=== PATIENT | male | born 1950 | race Caucasian/White ===

== ENCOUNTER 2016-05-01 09:04 | Inpatient (IN) | payer SELFPAY ==
[2016-05-01 09:10] VITALS: BMI 15.2
[2016-05-01] MEDS ORDERED: Albuterol-Ipratrop 3 mg / 0.5 (3 ml) UD IH STA (10:21)
--- NOTE | 2016-05-01 10:24 | ED PDOC ---
HPI: CCC, URI, Sore Throat Time Seen by Provider: 05/01/16 09:19 Chief Complaint (Nursing): Cough, Cold, Congestion Chief Complaint (Provider): Cough History Per: Patient History/Exam Limitations: no limitations Have you had recent travel within the past 21 days to any of the following countries: [place], [place], [place] or [place]?: No Onset/Duration Of Symptoms: Days (1 year) Current Symptoms Are (Timing): Still Present Additional Complaint(s): Pt. with cough for 1 year with dyspnea and yellow sputum. No nausea, vomit, weakness, headaches, dizziness, back pain, chest pain. Seen by Dr. Pulido and sent to the ED for eval and tx for fungal infection. No neck pain. Past Medical History Vital Signs: Last Vital Signs Temp 97.6 F 05/01/16 09:10 Pulse 107 H 05/01/16 09:10 Resp 16 05/01/16 09:10 BP 127/65 05/01/16 09:10 Pulse Ox 100 05/01/16 11:43 - Medical History PMH: HIV Denies: Chronic Kidney Disease - Surgical History Surgical History: No Surg Hx - Family History Family History: States: Unknown Family Hx, [place] - Living Arrangements Living Arrangements: Alone - Social History Current smoker - smoking cessation education provided: No Alcohol: None Drugs: Denies - Home Medications Home Medications: Ambulatory Orders Medication Instructions Recorded Cholecalciferol [Vitamin D 1000 IU] 2,000 iu PO DAILY #0 tab 01/13/15 Darunavir [Prezista] 800 mg PO DAILY #0 tab 01/13/15 Emtricitabine [Emtriva] 200 mg PO DAILY #0 cap 01/13/15 Ritonavir [Norvir] 100 mg PO DAILY #0 tab 01/13/15 - Allergies Allergies/Adverse Reactions: Allergies Allergy/AdvReac Type Severity Reaction Status Date / Time No Known Allergies Allergy Verified 12/28/14 19:22 Review of Systems ROS Statement: Except As Marked, All Systems Reviewed And Found Negative Respiratory: Positive for: Cough, Shortness of Breath, Sputum Physical Exam - Reviewed Nursing Documentation Reviewed: Yes Vital Signs Reviewed: Yes - Physical Exam Appears: Positive for: Well, Non-toxic, No Acute Distress Head Exam: Positive for: ATRAUMATIC, NORMAL INSPECTION, NORMOCEPHALIC Skin: Positive for: Normal Color, Warm, DRY Eye Exam: Positive for: EOMI, Normal appearance, PERRL ENT: Positive for: Nasal Congestion. Negative for: Pharyngeal Erythema, Tonsillar Exudate Neck: Positive for: Normal, Painless ROM, Supple Cardiovascular/Chest: Positive for: Regular Rate, Rhythm Respiratory: Positive for: Normal Breath Sounds. Negative for: Accessory Muscle Use, Wheezing Gastrointestinal/Abdominal: Positive for: Normal Exam, Bowel Sounds, Soft. Negative for: Tenderness Back: Positive for: Normal Inspection. Negative for: L CVA Tenderness, R CVA Tenderness Extremity: Positive for: Normal ROM. Negative for: Tenderness, Pedal Edema Neurologic/Psych: Positive for: Alert, Oriented - Laboratory Results Result Diagrams: 05/01/16 10:49 05/01/16 10:49 Interpretation Of Abn Labs: lactate 3 - ECG ECG Rhythm: Positive for: Sinus Rhythm, Right Bundle Branch Block O2 Sat by Pulse Oximetry: 100 Pulse Ox Interpretation: Normal - Radiology X-Ray: Interpreted by Me, Viewed By Me X-Ray Interpretation: Infiltrates (L upper and lower lobe: similar to old) - Progress ED Course And Treament: 1149: Stable. Spoke with Dr. Scott. Mary pt. admit to [facility] resident and ID consult for fungal tx. 1232: Spok with Dr. Fagan. Mary arboleda and Zosyn. Will admit. He will consult. Stable. AAOx3. Pain controlled. Does not meet sirs criteria. Disposition - Clinical Impression Clinical Impression: Pulmonary fungal infection - Patient ED Disposition Is Patient to be Admitted: Yes Doctor Will See Patient In The: ED Counseled Patient/Family Regarding: Studies Performed, Diagnosis - Disposition Disposition: Hospice - Home Disposition Time: 12:00 Condition: FAIR - Pt Status Changed To: Hospital Disposition Of: Inpatient - Admit Certification Admit to Inpatient:: After my assessment, the patient will require hospitalization for at least two midnights. This is because of the severity of symptoms shown, intensity of services needed, and/or the medical risk in this patient being treated as an outpatient. - POA Present On Arrival: None
[2016-05-01] MEDS ORDERED: Albuterol-Ipratrop 3 mg / 0.5 (3 ml) UD ONE (10:56)
[2016-05-01 10:57] LABS: BASO # 0.1 K/uL (0.0-0.2); BASO % 0.8 % (0.0-2.0); EOS # 1.4 K/uL (0.0-0.7); HEMATOCRIT 36.3 % (35.0-51.0); LYMPH # 2.5 K/uL (1.0-4.3); MEAN CELL VOLUME 88.4 fl (80.0-94.0); MEAN CORPUSCULAR HGB CONC 31.7 g/dL (33.0-37.0); MEAN PLATELET VOLUME 6.7 fl (7.2-11.7); MONO # 0.5 K/uL (0.0-0.8); MONO % 6.8 % (0.0-10.0); NEUT % 40.4 % (50.0-75.0); NRBC % 0.1 % (0.0-0.0); RED CELL DISTRIBUTION WIDTH 14.9 % (11.5-14.5); WHITE BLOOD COUNT 7.5 K/uL (4.8-10.8)
[2016-05-01 11:05] LABS: ALB/GLOB RATIO 0.8 (1.0-2.1); ALKALINE PHOSPHATASE 172 U/L (38-126); ALT/SGPT 35 U/L (21-72); AST/SGOT 43 U/L (17-59); BILIRUBIN,TOTAL 0.3 mg/dl (0.2-1.3); BLOOD UREA NITROGEN 11 mg/dl (9-20); CALCIUM 9.2 mg/dL (8.4-10.2); CARBON DIOXIDE 27 mmol/L (22-30); CHLORIDE 102 mmol/L (98-107); GFR AFRICAN-AMERICAN > 60; GLUCOSE,RANDOM 89 mg/dL (75-110); POTASSIUM 4.1 MMOL/L (3.6-5.0); SODIUM 137 mmol/l (132-148); TOTAL PROTEIN 8.7 G/DL (6.3-8.2)
[2016-05-01] MEDS: Sodium Chloride 0.9% 1,000 ML IV SCH ×2 (11:08→14:44)
[2016-05-01 11:13] LABS: PARTIAL THROMBOPLASTIN TIME 34.3 SECONDS (23.3-32.5)
[2016-05-01 11:19] LABS: VENOUS BLOOD GAS BASE EXCESS 1.5 mmol/L (0.0-2.0); VENOUS BLOOD GAS PCO2 50 mmHg (40-60); VENOUS BLOOD PH 7.35 (7.32-7.43)
[2016-05-01] MEDS ORDERED: VORICONAZOLE IVPB STA (12:31)
[2016-05-01] MEDS ORDERED: SODIUM CHLORIDE 0.9% IVPB STA (12:31)
[2016-05-01] MEDS ORDERED: Piperacillin/Tazobact 3.375 GM in Sodium Chloride 0.9% 100 ML IVPB STA (12:32)
--- NOTE | 2016-05-01 12:42 | RAD ---
HISTORY: Sepsis patient. Technique: Single view portable semi erect @ 11:10. COMPARISON: 01/04/2015. Two-view chest. 01/07/2015 CT thorax FINDINGS: LUNGS: Continued consolidative changes volume loss in the left lung with hyperinflation right Small infiltrate or mass right lower lobe measuring 16 x 19 mm. PLEURA: Stable biapical pleural thickening. CARDIOVASCULAR: Normal. OSSEOUS STRUCTURES: No significant abnormalities. VISUALIZED UPPER ABDOMEN: Normal. OTHER FINDINGS: None. IMPRESSION: Progressive consolidative changes left lung. New right lower lobe infiltrate/mass.
[2016-05-01 12:49] LABS: VENOUS BLOOD GAS BASE EXCESS 3.4 mmol/L (0.0-2.0); VENOUS BLOOD GAS PCO2 50 mmHg (40-60); VENOUS BLOOD PH 7.38 (7.32-7.43)
--- NOTE | 2016-05-01 13:02 | CT ---
PROCEDURE: CT HEAD WITHOUT CONTRAST. HISTORY: Abnormal x ray and previous ct scan COMPARISON: None available. TECHNIQUE: Axial computed tomography images were obtained through the head/brain without intravenous contrast. Radiation dose: Total exam DLP = 855.78 mGy-cm. FINDINGS: HEMORRHAGE: No intracranial hemorrhage. BRAIN: No mass effect or edema. No atrophy or chronic microvascular ischemic changes. VENTRICLES: Unremarkable. No hydrocephalus. CALVARIUM: Unremarkable. PARANASAL SINUSES: Unremarkable as visualized. No significant inflammatory changes. MASTOID AIR CELLS: Unremarkable as visualized. No inflammatory changes. OTHER FINDINGS: None. IMPRESSION: No intracranial mass, hemorrhage or evidence of acute infarct. Please note that there is no prior head CT available for comparison.
[2016-05-01] MEDS ORDERED: Piperacillin/Tazobact 3.375 gm Inj IVPB ONE (14:30)
--- NOTE | 2016-05-01 14:34 | CP.PCM.HP ---
History of Present Illness - History of Present Illness History of Present Illness: [employer] # [id number] 64 YO M with HIV, h/o tuburculoma surgery on left chest 2011 presents to the ER with C/o productive cough for the past year and a half. With yellowish non foul smelling, non blood tinged sputum. PT denies fever but states he has night sweats and and chills randomly but not all the time. PT states his appetitie is normal. He has been having some blurry vision and headache intermittently but currently is not complaining of it. Pt also complains of always being tired. Denies any Nausea, vomiting, neck rigidity. - Patients states he has been compliant with his medications and follows with his PMD regularly. PT states that he has known about the fungal infection in his chest for the last year and was possibly given medication but didn't work. 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 Denies IV drugs, Normal appetite PMD: Dr. Pulido Home med: - Proventil HFA - Truvada 200-300 mg tab - Tivicay 50 mg tablet 1 tab PO daily - Bactrim DS 800-160 mg tab orally once a day - Guafenesin 400mg tab BID - Oscal 500/200 D-3 500-200 mg unit ED Course and Rx: - Isolation - CBC: Hb:11.5, Eos:1.4 - CMP: Alk Phos: 172 - VBG: PH:7.38, PO2: 28, CO2:31.1 - Consulted Dr. Edwards - Consulted Dr. Fagan -Voriconazole 180 mg stat in ER - Bactrim DS one tab PO ( Received first dose in ER) - Albuterol Ipratropium neb - EKG: Normal sinus rhythm Right bundle branch block -X Ray: Progressive consolidative changes in left lung, New right lower lobe infiltrate/mass Present on Admission - Present on Admission Any Indicators Present on Admission: No Review of Systems - Review of Systems Review of Systems: negative except as mentioned in HPI Past Patient History - Infectious Disease Hx of Infectious Diseases: None - Past Medical History & Family History Past Medical History?: Yes - Past Social History Alcohol: None Drugs: Denies - CARDIAC Hx Cardiac Disorders: No - PULMONARY Hx Respiratory Disorders: Yes Hx Tuberculosis: Yes Other/Comment: tuberculoma of lung - NEUROLOGICAL Hx Neurological Disorder: No - HEENT Hx HEENT Problems: Yes - RENAL Hx Chronic Kidney Disease: No - ENDOCRINE/METABOLIC Hx Endocrine Disorders: No - HEMATOLOGICAL/ONCOLOGICAL Hx Human Immunodeficiency Virus (HIV): Yes - INTEGUMENTARY Hx Dermatological Problems: No - MUSCULOSKELETAL/RHEUMATOLOGICAL Hx Musculoskeletal Disorders: No Hx Falls: No - GASTROINTESTINAL Hx Gastrointestinal Disorders: No - GENITOURINARY/GYNECOLOGICAL Hx Genitourinary Disorders: No - PSYCHIATRIC Hx Psychophysiologic Disorder: No Hx Substance Use: No - SURGICAL HISTORY Hx Surgeries: Yes Hx Pulmonary Surgery: Yes (tuberculoma) - ANESTHESIA Hx Anesthesia: Yes Hx Anesthesia Reactions: No Hx Malignant Hyperthermia: No Meds Allergies/Adverse Reactions: Allergies Allergy/AdvReac Type Severity Reaction Status Date / Time No Known Allergies Allergy Verified 12/28/14 19:22 Physical Exam - Constitutional Appears: No Acute Distress, Chronically Ill - Head Exam Head Exam: ATRAUMATIC, NORMAL INSPECTION, NORMOCEPHALIC Additional comments: Mouth no lesions noted - Eye Exam Eye Exam: Normal appearance - Neck Exam Neck exam: Negative for: Lymphadenopathy - Respiratory Exam Respiratory Exam: Clear to Auscultation Bilateral, NORMAL BREATHING PATTERN. absent: Rales, Rhonchi, Wheezes - Cardiovascular Exam Cardiovascular Exam: REGULAR RHYTHM, +S1, +S2 - GI/Abdominal Exam GI & Abdominal Exam: Normal Bowel Sounds, Soft. absent: Tenderness - Extremities Exam Extremities exam: Positive for: normal inspection. Negative for: calf tenderness - Neurological Exam Neurological exam: Alert, CN II-XII Intact, Oriented x3 Results - Vital Signs Recent Vital Signs: Last Vital Signs Temp 97.6 F 05/01/16 09:10 Pulse 107 H 05/01/16 09:10 Resp 16 05/01/16 09:10 BP 127/65 05/01/16 09:10 Pulse Ox 100 05/01/16 12:36 - Labs Result Diagrams: 05/01/16 10:49 05/01/16 10:49 Labs: Laboratory Results - last 24 hr 05/01/16 12:43 pO2 28 L VBG pH 7.38 VBG pCO2 50 VBG HCO3 26.3 VBG Total CO2 31.1 H VBG O2 Sat (Calc) 48.5 VBG Base Excess 3.4 H VBG Potassium 4.0 Sodium 134.0 Chloride 107.0 Glucose 89 Lactate 1.2 FiO2 21.0 Venous Blood Potassium 4.0 Assessment & Plan - Assessment and Plan (Free Text) Assessment: 1) Posible Pulmonary Aspergiloma - CT scan: Persistant cavitary lesion rt upper lobe w/ rounded soft tissue mass density. - H/O tuburculoma surgery 2011 -X Ray: Progressive consolidative changes in left lung, New right lower lobe infiltrate/mass. - Dr. Hernández (ID) on board - Consult Dr. Bardales (Pulm) - Voriconazole 200 mg IVPB Q12 - Zosyn IVPB Q6 - F/U w/ Sputum Culture, Blood Culture 2) HIV CD4 (177) (undetectable viral load) - Emtricitabine/ Tenofovir 200mg-300mg Daily - Bactrim DS 1 tab PO MWF - Azithromycin 1,200 mg PO QWK 3) Mild intermitant asthma - Albuterol inhaler PRN 4) DVT prophylaxis - Lovenox
--- NOTE | 2016-05-01 14:42 | CP.PCM.PN ---
Subjective - Date & Time of Evaluation Date of Evaluation: 05/01/16 Time of Evaluation: 14:35 - Subjective Subjective: iID NOTE PATIENT C PULMONARY ASPERGILLOSIS AND HIV ON TRUVADA/TIVICAY DISCUSSED c CD4:177,VIRAL LOAD IS <20 CXR :REVIEWED VFEND STARTED WELL ZOSYN PULMONARY CONSULT() Objective - Vital Signs/Intake and Output Vital Signs (last 24 hours): Temp Pulse Resp BP Pulse Ox 97.6 F 107 H 16 127/65 100 05/01/16 09:10 05/01/16 09:10 05/01/16 09:10 05/01/16 09:10 05/01/16 12:36 - Medications Medications: Current Medications Sodium Chloride (Sodium Chloride 0.9%) 1,000 mls @ 1,000 mls/hr IV .Q1H RADHA Last Admin: 05/01/16 11:08 Dose: 1,000 mls/hr Voriconazole 240 mg/ Sodium (Chloride) 100 mls @ 50 mls/hr IVPB Q12@0400,1600 RADHA Stop: 05/02/16 05:59 Voriconazole 160 mg/ Sodium (Chloride) 100 mls @ 50 mls/hr IVPB Q12@0400,1600 RADHA Piperacillin Sod/Tazobactam (Sod 2.25 gm/ Sodium Chloride) 100 mls @ 100 mls/ hr IVPB Q6 RADHA - Labs Labs: PT 10.8 SECONDS (9.6-11.2) 05/01/16 10:49 INR 1.04 (0.92-1.08) 05/01/16 10:49 APTT 34.3 SECONDS (23.3-32.5) H 05/01/16 10:49
[2016-05-01] MEDS ORDERED: Sodium Chloride 3% for Inhalation 4 ML VIAL.NEB IH PRN (14:58)
[2016-05-01] MEDS ORDERED: Albuterol HFA 90 mcg/actuation (8 g) INH PRN (16:14)
[2016-05-01] MEDS: VORICONAZOLE IVPB SCH (17:02)
[2016-05-01] MEDS: SODIUM CHLORIDE 0.9% IVPB SCH (17:02)
--- NOTE | 2016-05-01 18:31 | CT ---
PROCEDURE: CT Chest without contrast HISTORY: PULMONARY ASPERGILLOSIS COMPARISON: 01/04/2015 TECHNIQUE: Contiguous axial images were obtained through the chest without intravenous contrast enhancement. Sagittal and coronal reconstructions were performed. Radiation dose (DLP): 146.77 mGy-cm. FINDINGS: LUNGS: Extensive volume loss left lung. Likely partial left pneumonectomy. Extensive cavitary change in remaining left lung with associated marked pleural thickening. No normal residual aerated lung. . There is an intracavitary soft tissue mass best seen on series 3, image 32, possibly an aspergilloma. This probable bronchiectasis. Marked tracheomegaly. Right apical fibrous scar with small cavities and possible intracavitary mass as on prior examination, suggestive of aspergilloma. Pleural thickening extends along the posterior aspect right upper lobe. No acute infiltrate. Minimal linear scarring right lower lobe. MEDIASTINUM: Marked shift of heart and mediastinum towards the left side. No cardiomegaly. No evidence of thoracic aortic aneurysm. Normal diameter of main pulmonary artery. Mildly enlarged prevascular lymph nodes decreased from prior examination. PLEURA: No pleural effusion. Marked elevation of left hemidiaphragm secondary to left-sided volume loss. See above. BONES: No fracture. No destructive lesion. UPPER ABDOMEN: Grossly unremarkable. OTHER FINDINGS: None. IMPRESSION: Severe left-sided volume loss with no residual normal aerated lung. Extensive pleural thickening. About left sebas thorax. Pleural thickening right apex. 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 Partial left pneumonectomy. No acute infiltrate.
[2016-05-02] MEDS: SODIUM CHLORIDE 0.9% IVPB SCH ×2 (04:45→16:05)
[2016-05-02] MEDS: VORICONAZOLE IVPB SCH ×2 (04:45→16:05)
[2016-05-02] MEDS: TIVICAY PO SCH (08:32)
[2016-05-02] MEDS: Enoxaparin 40 mg Syringe SC SCH (08:32)
[2016-05-02] MEDS: Emtricitabine-Tenofovir 200 mg-300 mg Tab PO SCH (08:32)
--- NOTE | 2016-05-02 11:34 | CON ---
DATE: 05/02/2016 SUBJECTIVE: The patient is a 65-year-old male who is referred for pulmonary evaluation because of a cough for the past 1-1/2 years, followed by foul smelling sputum, which is yellowish in color. Denie s hemoptysis, no fever, chills or night sweats. The patient was admitted to the medical service for the above symptoms and the finding on the CT scan of aspergilloma fungus ball. PAST MEDICAL HISTORY: He has a past medical history of HIV infection, status post left upper lobe re section for tuberculosis in 2011. He has been followed up by Dr. Pulido in the outpatient clinic. MEDICATIONS: Include: Proventil, Truvada, , Bactrim, Os-Oral and guaifenesin. PHYSICAL EXAMINATION: GENERAL: He appears to have lost a lot of weight. He is alert, oriented, appears to be in mild distr ess because of cough. VITAL SIGNS: Blood pressure 97/59, pulse of 70, respirations 20. He is afebrile. O2 sat 100% on ro om air. SKIN: Shows fair turgor. HEENT: Pupils equal, react to light and accommodation. Mouth shows fair hygiene. NECK: JVP is flat. LUNGS: Bilateral scattered rales with dullness over the left apical area. ABDOMEN: Soft, nontender, no organomegaly. EXTREMITIES: Shows no edema or cyanosis. Also noted is a scar of prior surgery, left upper lobe are a. LABORATORY DATA: CT scan of the chest is remarkable for left-sided volume loss, with residual , with lung extensive pleural thickening, possible bilateral aspergilloma, partial left pneumonectomy noted. WBC 7.5, hemoglobin 11.5, platelet count 347,000. Sodium 137, potassium 4.1, BUN of 11, crea tinine 0.7. ABGs: pH 7.38, pO2 of 28, pCO2 of 50. This is a venous blood gas. IMPRESSION: A 65-year-old male with a history of human immunodeficiency virus infection, status post left upper lobe resection for tuberculosis, presents with what appears to be aspergilloma. PLAN: To continue IV antifungal medications as ordered and also continue antibiotics as ordered. Wo uld obtain sputum for Aspergillus precipitins and also obtain sputum for AFB to rule out recurrence o f tuberculosis. I agree with the present therapy. We will continue to follow with you. No other in tervention except for ordered medications at present, unless the patient develops hemoptysis. Eber Bardales MD cc: 62 TT: 05/02/2016 11:34:11 Confirmation # [id number] Dictation # [id number]
--- NOTE | 2016-05-02 11:58 | CARD ---
APPROVED REPORT EKG Measurement Heart [id number] <Conclusion> Normal sinus rhythm Right bundle branch block Abnormal ECG
--- NOTE | 2016-05-02 13:30 | CP.PCM.PN ---
Subjective - Date & Time of Evaluation Date of Evaluation: 05/02/16 Time of Evaluation: 07:15 - Subjective Subjective: - Patient was seen at bedside states he is doing well. He slept well thoughout the night. Denies any N/V/D headache, chest pain, or SOB. He states his appetite is good. Objective - Vital Signs/Intake and Output Vital Signs (last 24 hours): Temp Pulse Resp BP Pulse Ox 98.4 F 70 20 97/59 L 100 05/02/16 08:38 05/02/16 08:38 05/02/16 08:38 05/02/16 08:38 05/02/16 08:38 - Medications Medications: Current Medications Albuterol (Ventolin Hfa 90 Mcg/Actuation (8 G)) 2 puff INH RQ4 PRN PRN Reason: Shortness of Breath Azithromycin (Zithromax) 1,200 mg PO QWK [facility] Emtricitabine/Tenofovir (Truvada 200 Mg-300 Mg) 1 tab PO DAILY [facility] Last Admin: 05/02/16 08:32 Dose: 1 tab Enoxaparin Sodium (Lovenox) 40 mg SC DAILY RADHA PRN Reason: Protocol Last Admin: 05/02/16 08:32 Dose: 40 mg Home Med (Patient's Own Medication) 1 unit PO DAILY [facility] Last Admin: 05/02/16 08:32 Dose: 1 unit Voriconazole 160 mg/ Sodium (Chloride) 100 mls @ 50 mls/hr IVPB Q12@0400,1600 [facility] Piperacillin Sod/Tazobactam (Sod 2.25 gm/ Sodium Chloride) 100 mls @ 100 mls/ hr IVPB Q6 [facility] Last Admin: 05/02/16 09:14 Dose: 100 mls/hr Trimethoprim/Sulfamethoxazole (Bactrim Ds Tab) 1 tab PO MWF [facility] - Labs Labs: PT 10.8 SECONDS (9.6-11.2) 05/01/16 10:49 INR 1.04 (0.92-1.08) 05/01/16 10:49 APTT 34.3 SECONDS (23.3-32.5) H 05/01/16 10:49 - Constitutional Appears: No Acute Distress - Head Exam Head Exam: ATRAUMATIC, NORMAL INSPECTION, NORMOCEPHALIC - Respiratory Exam Respiratory Exam: NORMAL BREATHING PATTERN. absent: Rales, Rhonchi, Wheezes - Cardiovascular Exam Cardiovascular Exam: REGULAR RHYTHM, +S1, +S2 - GI/Abdominal Exam GI & Abdominal Exam: Soft, Normal Bowel Sounds. absent: Tenderness - Extremities Exam Extremities Exam: Normal Inspection. 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 - Dr. Hernández (ID) appreciated - Dr. Bardales (Pulm) appreciated - Voriconazole 200 mg IVPB Q12 - Zosyn IVPB Q6 - Blood culture no growth in 24 hours - F/U w/ Sputum Culture, , Aspergillus Ab, Aspergillus DNA, Fungitell, AFP cult sputum 2) HIV CD4 (177) (undetectable viral load) - Emtricitabine/ Tenofovir 200mg-300mg Daily - Bactrim DS 1 tab PO MWF - Azithromycin 1,200 mg PO QWK 3) Mild intermitant asthma - Albuterol inhaler PRN 4) DVT prophylaxis - Lovenox
--- NOTE | 2016-05-02 18:32 | CP.PCM.PN ---
Subjective - Date & Time of Evaluation Date of Evaluation: 05/02/16 Time of Evaluation: 18:24 - Subjective Subjective: id note dictation was cut off will finish impression c this note HIV DISEASE HISTORY OF TUBERCULOSIS LEFT APEX C THORACOTOMY APPARENTLY TREATED X 1 YEAR FUNGAL DISEASE RIGHT LUNG LIKELY ASPERGILLOMA RX STARTED WILL LIKELY NEED SURGICAL EVALUATION Objective - Vital Signs/Intake and Output Vital Signs (last 24 hours): Temp Pulse Resp BP Pulse Ox 98.2 F 67 18 93/54 L 98 05/02/16 17:19 05/02/16 17:19 05/02/16 17:19 05/02/16 17:19 05/02/16 17:19 - Medications Medications: Current Medications Albuterol (Ventolin Hfa 90 Mcg/Actuation (8 G)) 2 puff INH RQ4 PRN PRN Reason: Shortness of Breath Azithromycin (Zithromax) 1,200 mg PO QWK [facility] Emtricitabine/Tenofovir (Truvada 200 Mg-300 Mg) 1 tab PO DAILY [facility] Last Admin: 05/02/16 08:32 Dose: 1 tab Enoxaparin Sodium (Lovenox) 40 mg SC DAILY [facility] PRN Reason: Protocol Last Admin: 05/02/16 08:32 Dose: 40 mg Home Med (Patient's Own Medication) 1 unit PO DAILY [facility] Last Admin: 05/02/16 08:32 Dose: 1 unit Voriconazole 160 mg/ Sodium (Chloride) 100 mls @ 50 mls/hr IVPB Q12@0400,1600 [facility] Last Admin: 05/02/16 16:05 Dose: 50 mls/hr Piperacillin Sod/Tazobactam (Sod 2.25 gm/ Sodium Chloride) 100 mls @ 100 mls/ hr IVPB Q6 [facility] Last Admin: 05/02/16 15:04 Dose: 100 mls/hr Trimethoprim/Sulfamethoxazole (Bactrim Ds Tab) 1 tab PO MWF [facility] - Labs Labs: PT 10.8 SECONDS (9.6-11.2) 05/01/16 10:49 INR 1.04 (0.92-1.08) 05/01/16 10:49 APTT 34.3 SECONDS (23.3-32.5) H 05/01/16 10:49
[2016-05-02 19:22] LABS: ALB/GLOB RATIO 0.8 (1.0-2.1); ALKALINE PHOSPHATASE 156 U/L (38-126); ALT/SGPT 30 U/L (21-72); AST/SGOT 47 U/L (17-59); BILIRUBIN,TOTAL < 0.1 mg/dl (0.2-1.3); BLOOD UREA NITROGEN 18 mg/dl (9-20); CALCIUM 8.9 mg/dL (8.4-10.2); CARBON DIOXIDE 27 mmol/L (22-30); CHLORIDE 103 mmol/L (98-107); GFR AFRICAN-AMERICAN > 60; GLUCOSE,RANDOM 126 mg/dL (75-110); POTASSIUM 4.2 MMOL/L (3.6-5.0); SODIUM 144 mmol/l (132-148); TOTAL PROTEIN 7.4 G/DL (6.3-8.2)
--- NOTE | 2016-05-02 21:11 | CON ---
DATE: 05/02/2016 HISTORY OF PRESENT ILLNESS: The patient is a 65-year-old male who was born in [facility] who also has a history of HIV and a past history of tuberculoma surgery of the left chest in 2011 .He was apparently was treated with anti-TB meds at the [facility] for at least 1 year. He comes to the Emergency Room with a productive cough for at least a year and a half. He has yellowish productive nonblood tinged his sputum. States he had a cough for some time now. The patient denies any knowledge of fever, but he has been having some chills. States he is eating well, but has lost over 20 pounds, possibly closer to 30. He is short in stature, he is 5 foot 2 and is only 86 pounds. Also complains of being fatigued. He is taking his HIV meds and is being taken care of by Dr. Pulido at the [facility].His viral load is undetectable. I think his CD4 count is 177. He says he has known about fungal congestion over this past year and was given medication, which did not help PAST MEDICAL HISTORY: HIV and TB. ALLERGIES: No allergies. SOCIAL HISTORY: Lives alone. He is a MSM and history of [employer] He says he has not been sexually active for some time He has no history of IV drug use and/or ethanolism MEDICATIONS: His medications are Proventil, Truvada,Tivicay(ARVs) Bactrim-DS 1 tab p.o. he is taking that once a day. and zithromax 1200mg weekly PHYSICAL EXAMINATION: GENERAL: He is alert, pleasant, cooperative and in no acute distress. HEENT: The patient shows facial wasting, both malar and temporal wasting. NECK: Supple. Has some shotty cervical adenopathy. LUNGS: Has bilateral scattered rhonchi and has dullness in the left apical area. Reviewed Dr. Bardales's note also. ABDOMEN: Soft, no tenderness, no organomegaly. SKIN: Shows a scar of the previous episode, upper lobe surgery. CT scan of the chest is remarkable for left-sided volume loss with extensive pleural thickening, possible bilateral aspergilloma, left pneumonectomy noted onset. LABORATORY DATA: White count is 7.5, hemoglobin 11.5, platelet count 347,000. Creatinine 0.7, BUN 11. IMPRESSION AND PLAN: At this point in time impression is a 65-year-old male with: 1. Human immunodeficiency virus disease. 2. Left upper lobe tumor resection for tuberculosis and presently what appears to be aspergilloma.of right lung At this point in time, would treat him with IV Vifend have given an induction dose of 240mg [id number] for 24 hrs followed by 160mg ivpb q12h as maintenance dose. Zosyn 2.250gm ivpb q6h for superimposed pneumonia see progress note Sanya Burnette MD cc: 61 TT: 05/02/2016 21:10:40 Confirmation # [id number] Dictation # [id number] MTDD
[2016-05-03] MEDS: SODIUM CHLORIDE 0.9% IVPB SCH ×2 (04:37→16:07)
[2016-05-03] MEDS: VORICONAZOLE IVPB SCH ×2 (04:37→16:07)
--- NOTE | 2016-05-03 06:15 | CP.PCM.PN ---
Subjective - Date & Time of Evaluation Date of Evaluation: 05/03/16 Time of Evaluation: 07:20 - Subjective Subjective: PT was seen at bedside. Denies any overnight events. Has been eating and has a normal bowl movement. Denies any adverse effects from the treatment.. Denies N/V /D/chest pain. Objective - Vital Signs/Intake and Output Vital Signs (last 24 hours): Temp Pulse Resp BP Pulse Ox 97.8 F 69 18 92/49 L 98 05/02/16 21:45 05/02/16 21:45 05/02/16 21:45 05/02/16 21:45 05/02/16 21:45 - Medications Medications: Current Medications Albuterol (Ventolin Hfa 90 Mcg/Actuation (8 G)) 2 puff INH RQ4 PRN PRN Reason: Shortness of Breath Azithromycin (Zithromax) 1,200 mg PO QWK [facility] Emtricitabine/Tenofovir (Truvada 200 Mg-300 Mg) 1 tab PO DAILY [facility] Last Admin: 05/02/16 08:32 Dose: 1 tab Enoxaparin Sodium (Lovenox) 40 mg SC DAILY [facility] PRN Reason: Protocol Last Admin: 05/02/16 08:32 Dose: 40 mg Home Med (Patient's Own Medication) 1 unit PO DAILY [facility] Last Admin: 05/02/16 08:32 Dose: 1 unit Voriconazole 160 mg/ Sodium (Chloride) 100 mls @ 50 mls/hr IVPB Q12@0400,1600 [facility] Last Admin: 05/03/16 04:37 Dose: 50 mls/hr Piperacillin Sod/Tazobactam (Sod 2.25 gm/ Sodium Chloride) 100 mls @ 100 mls/ hr IVPB Q6 [facility] Last Admin: 05/03/16 03:31 Dose: 100 mls/hr Trimethoprim/Sulfamethoxazole (Bactrim Ds Tab) 1 tab PO MWF [facility] - Labs Labs: 05/02/16 18:30 PT 10.8 SECONDS (9.6-11.2) 05/01/16 10:49 INR 1.04 (0.92-1.08) 05/01/16 10:49 APTT 34.3 SECONDS (23.3-32.5) H 05/01/16 10:49 - Constitutional Appears: No Acute Distress - Head Exam Head Exam: NORMAL INSPECTION - Respiratory Exam Respiratory Exam: Rales, NORMAL BREATHING PATTERN Additional comments: Bilateral scattered rales - Cardiovascular Exam Cardiovascular Exam: REGULAR RHYTHM, +S1, +S2 - GI/Abdominal Exam GI & Abdominal Exam: Soft, Normal Bowel Sounds. absent: Tenderness - Extremities Exam Extremities Exam: Normal Inspection. absent: Tenderness - Neurological Exam Neurological Exam: Alert, Awake, Normal Gait, Oriented x3 Assessment and Plan - Assessment and Plan (Free Text) Assessment: 64 YO M w/ H/o HIV, tuburculoma surgery in 2011 presents to the ER w/ productive cough for the past year, most likely Aspergiloma 1) Possible Pulmonary Aspergiloma - CT chest: Sev left sided volume loss, intracavitary soft tissue mass, Probable b/l aspergilloma - H/O tuburculoma surgery 2011 -X Ray: Progressive consolidative changes in left lung, New right lower lobe infiltrate/mass. - Dr. Hernández (ID) appreciated - Dr. Bardales (Pulm) appreciated - Voriconazole 200 mg IVPB Q12 - Zosyn IVPB Q6 - Blood culture no growth in 24 hours - F/U w/ Sputum Culture, , Aspergillus Ab, Aspergillus DNA, Fungitell, AFP cult sputum 2) HIV CD4 (177) (undetectable viral load) - Emtricitabine/ Tenofovir 200mg-300mg Daily - Bactrim DS 1 tab PO MWF - Azithromycin 1,200 mg PO QWK - Ordered hepatitis panel 3) Mild intermitant asthma - Albuterol inhaler PRN 4) DVT prophylaxis - Lovenox
[2016-05-03] MEDS: Enoxaparin 40 mg Syringe SC SCH (09:47)
[2016-05-03] MEDS: Emtricitabine-Tenofovir 200 mg-300 mg Tab PO SCH (09:48)
[2016-05-03] MEDS: TIVICAY PO SCH (09:48)
[2016-05-03] MEDS: Tmp-Smz 800 mg-160 mg DS Tab PO SCH (09:48)
--- NOTE | 2016-05-03 14:12 | CP.PCM.PN ---
Subjective - Date & Time of Evaluation Date of Evaluation: 05/03/16 Time of Evaluation: 14:11 - Subjective Subjective: FEELING BETTER DENIES CHEST PAINS/SOB Objective - Vital Signs/Intake and Output Vital Signs (last 24 hours): Temp Pulse Resp BP Pulse Ox 98.0 F 74 20 100/63 96 05/03/16 08:17 05/03/16 08:17 05/03/16 08:17 05/03/16 08:17 05/03/16 08:17 - Medications Medications: Current Medications Albuterol (Ventolin Hfa 90 Mcg/Actuation (8 G)) 2 puff INH RQ4 PRN PRN Reason: Shortness of Breath Azithromycin (Zithromax) 1,200 mg PO QWK [facility] Emtricitabine/Tenofovir (Truvada 200 Mg-300 Mg) 1 tab PO DAILY [facility] Last Admin: 05/03/16 09:48 Dose: 1 tab Enoxaparin Sodium (Lovenox) 40 mg SC DAILY [facility] PRN Reason: Protocol Last Admin: 05/03/16 09:47 Dose: 40 mg Home Med (Patient's Own Medication) 1 unit PO DAILY [facility] Last Admin: 05/03/16 09:48 Dose: 1 unit Voriconazole 160 mg/ Sodium (Chloride) 100 mls @ 50 mls/hr IVPB Q12@0400,1600 [facility] Last Admin: 05/03/16 04:37 Dose: 50 mls/hr Piperacillin Sod/Tazobactam (Sod 2.25 gm/ Sodium Chloride) 100 mls @ 100 mls/ hr IVPB Q6 [facility] Last Admin: 05/03/16 09:47 Dose: 100 mls/hr Trimethoprim/Sulfamethoxazole (Bactrim Ds Tab) 1 tab PO MWF [facility] Last Admin: 05/03/16 09:48 Dose: 1 tab - Labs Labs: 05/02/16 18:30 PT 10.8 SECONDS (9.6-11.2) 05/01/16 10:49 INR 1.04 (0.92-1.08) 05/01/16 10:49 APTT 34.3 SECONDS (23.3-32.5) H 05/01/16 10:49 - Constitutional Appears: Well - Head Exam Head Exam: ATRAUMATIC, NORMAL INSPECTION, NORMOCEPHALIC - Eye Exam Eye Exam: EOMI, Normal appearance, PERRL Pupil Exam: NORMAL ACCOMODATION, PERRL - ENT Exam ENT Exam: Mucous Membranes Moist, Normal Exam - Neck Exam Neck Exam: Full ROM, Normal Inspection. absent: Lymphadenopathy - Respiratory Exam Respiratory Exam: Decreased Breath Sounds, Rales, NORMAL BREATHING PATTERN - Cardiovascular Exam Cardiovascular Exam: REGULAR RHYTHM, +S1, +S2. absent: Murmur - GI/Abdominal Exam GI & Abdominal Exam: Soft, Normal Bowel Sounds. absent: Tenderness - Rectal Exam Rectal Exam: NORMAL INSPECTION - Extremities Exam Extremities Exam: Full ROM, Normal Capillary Refill, Normal Inspection. absent : Joint Swelling, Pedal Edema - Back Exam Back Exam: NORMAL INSPECTION - Neurological Exam Neurological Exam: Alert, Awake, CN II-XII Intact, Normal Gait, Oriented x3 - Psychiatric Exam Psychiatric exam: Normal Affect, Normal Mood - Skin Skin Exam: Dry, Intact, Normal Color, Warm Assessment and Plan - Assessment and Plan (Free Text) Assessment: ASPERGILLOMA HX OF PTB HIV DZ Plan: CONTINUE SAME RX
[2016-05-04] MEDS: VORICONAZOLE IVPB SCH ×2 (05:26→16:11)
[2016-05-04] MEDS: SODIUM CHLORIDE 0.9% IVPB SCH ×2 (05:26→16:11)
[2016-05-04] MEDS: Enoxaparin 40 mg Syringe SC SCH (08:59)
[2016-05-04] MEDS: Emtricitabine-Tenofovir 200 mg-300 mg Tab PO SCH (08:59)
[2016-05-04] MEDS: TIVICAY PO SCH (08:59)
--- NOTE | 2016-05-04 11:27 | CP.PCM.PN ---
Subjective - Date & Time of Evaluation Date of Evaluation: 05/04/16 Time of Evaluation: 09:40 - Subjective Subjective: No over-night events or acute events. Denies ADRs to medications. Tolerating PO intake without difficulty. Ambulating without assistance. No chest pain, nausea , vomiting, diarrhea. Continues to have productive cough. Denies shortness of breath. AFB x2 collected- 1 pending for AFB. Objective - Vital Signs/Intake and Output Vital Signs (last 24 hours): Temp Pulse Resp BP Pulse Ox 97.8 F 101 H 20 99/64 L 97 05/04/16 08:38 05/04/16 08:38 05/04/16 08:38 05/04/16 08:38 05/04/16 08:38 - Medications Medications: Current Medications Albuterol (Ventolin Hfa 90 Mcg/Actuation (8 G)) 2 puff INH RQ4 PRN PRN Reason: Shortness of Breath Azithromycin (Zithromax) 1,200 mg PO QWK [facility] Emtricitabine/Tenofovir (Truvada 200 Mg-300 Mg) 1 tab PO DAILY [facility] Last Admin: 05/04/16 08:59 Dose: 1 tab Enoxaparin Sodium (Lovenox) 40 mg SC DAILY [facility] PRN Reason: Protocol Last Admin: 05/04/16 08:59 Dose: 40 mg Home Med (Patient's Own Medication) 1 unit PO DAILY [facility] Last Admin: 05/04/16 08:59 Dose: 1 unit Voriconazole 160 mg/ Sodium (Chloride) 100 mls @ 50 mls/hr IVPB Q12@0400,1600 [facility] Last Admin: 05/04/16 05:26 Dose: 50 mls/hr Piperacillin Sod/Tazobactam (Sod 2.25 gm/ Sodium Chloride) 100 mls @ 100 mls/ hr IVPB Q6 [facility] Last Admin: 05/04/16 08:59 Dose: 100 mls/hr Trimethoprim/Sulfamethoxazole (Bactrim Ds Tab) 1 tab PO MWF [facility] Last Admin: 05/03/16 09:48 Dose: 1 tab - Labs Labs: 05/02/16 18:30 PT 10.8 SECONDS (9.6-11.2) 05/01/16 10:49 INR 1.04 (0.92-1.08) 05/01/16 10:49 APTT 34.3 SECONDS (23.3-32.5) H 05/01/16 10:49 - Head Exam Head Exam: ATRAUMATIC, NORMOCEPHALIC - Eye Exam Eye Exam: EOMI, Normal appearance - ENT Exam ENT Exam: Mucous Membranes Moist - Respiratory Exam Respiratory Exam: Decreased Breath Sounds, Rales, Rhonchi, NORMAL BREATHING PATTERN. absent: Wheezes - Cardiovascular Exam Cardiovascular Exam: REGULAR RHYTHM, +S1, +S2 - GI/Abdominal Exam GI & Abdominal Exam: Soft, Normal Bowel Sounds. absent: Tenderness - Extremities Exam Extremities Exam: Normal Inspection. absent: Pedal Edema, Tenderness - Neurological Exam Neurological Exam: Alert, Awake, CN II-XII Intact Assessment and Plan - Assessment and Plan (Free Text) Plan: 1) Bilateral Pulmonary Aspergilloma(s) CT chest: Severe left sided volume loss, intracavitary soft tissue mass, Probable BL Aspergilloma Tuberculoma surgery 2012 X Ray: Progressive consolidative changes in left lung, New right lower lobe infiltrate/mass. Dr. Hernández (ID) appreciated Dr. Bardales (Pulm) appreciated AFB x2 collected, pending one -Voriconazole 200 mg IVPB Q12 -Zosyn IVPB Q6 -Blood culture no growth in 24 hours -Follow up Sputum Culture, , Aspergillus Ab, Aspergillus DNA, Fungitell, AFP cult sputum 2) HIV CD4 (177) (undetectable viral load) -Emtricitabine/ Tenofovir 200mg-300mg Daily -Bactrim DS 1 tab PO MWF -Azithromycin 1,200 mg PO QWK -Ordered hepatitis panel 3) Mild intermitant asthma -Albuterol inhaler PRN 4) DVT prophylaxis - Lovenox
[2016-05-04 14:57] LABS: HEMATOCRIT 36.4 % (35.0-51.0); MEAN CELL VOLUME 88.1 fl (80.0-94.0); MEAN CORPUSCULAR HEMOGLOBIN 27.8 pg (27.0-31.0); MEAN CORPUSCULAR HGB CONC 31.6 g/dL (33.0-37.0); RED CELL DISTRIBUTION WIDTH 14.7 % (11.5-14.5)
--- NOTE | 2016-05-04 17:10 | CP.PCM.PN ---
Subjective - Date & Time of Evaluation Date of Evaluation: 05/04/16 Time of Evaluation: 17:06 - Subjective Subjective: ID NOTE AFEBRILE STILL HAS PRODUCTIVE COUGH 2 AFB CULTURES TAKEN RENAL FUNCTION IS WNL STATES THAT HE HAS NO CHEST PAIN CONTINUE SAME RX REPEAT CBC THERE WAS INCREASE IN WBC Objective - Vital Signs/Intake and Output Vital Signs (last 24 hours): Temp Pulse Resp BP Pulse Ox 98.8 F 95 H 20 100/56 L 97 05/04/16 15:57 05/04/16 15:57 05/04/16 15:57 05/04/16 15:57 05/04/16 15:57 - Medications Medications: Current Medications Albuterol (Ventolin Hfa 90 Mcg/Actuation (8 G)) 2 puff INH RQ4 PRN PRN Reason: Shortness of Breath Azithromycin (Zithromax) 1,200 mg PO QWK [facility] Emtricitabine/Tenofovir (Truvada 200 Mg-300 Mg) 1 tab PO DAILY [facility] Last Admin: 05/04/16 08:59 Dose: 1 tab Enoxaparin Sodium (Lovenox) 40 mg SC DAILY [facility] PRN Reason: Protocol Last Admin: 05/04/16 08:59 Dose: 40 mg Home Med (Patient's Own Medication) 1 unit PO DAILY [facility] Last Admin: 05/04/16 08:59 Dose: 1 unit Voriconazole 160 mg/ Sodium (Chloride) 100 mls @ 50 mls/hr IVPB Q12@0400,1600 [facility] Last Admin: 05/04/16 16:11 Dose: 50 mls/hr Piperacillin Sod/Tazobactam (Sod 2.25 gm/ Sodium Chloride) 100 mls @ 100 mls/ hr IVPB Q6 [facility] Last Admin: 05/04/16 15:28 Dose: 100 mls/hr Trimethoprim/Sulfamethoxazole (Bactrim Ds Tab) 1 tab PO MWF [facility] Last Admin: 05/03/16 09:48 Dose: 1 tab - Labs Labs: 05/04/16 14:50 05/02/16 18:30 PT 10.8 SECONDS (9.6-11.2) 05/01/16 10:49 INR 1.04 (0.92-1.08) 05/01/16 10:49 APTT 34.3 SECONDS (23.3-32.5) H 05/01/16 10:49
[2016-05-05] MEDS: SODIUM CHLORIDE 0.9% IVPB SCH ×2 (04:44→18:07)
[2016-05-05] MEDS: VORICONAZOLE IVPB SCH ×2 (04:44→18:07)
[2016-05-05] MEDS: TIVICAY PO SCH (09:52)
[2016-05-05] MEDS: Emtricitabine-Tenofovir 200 mg-300 mg Tab PO SCH (09:52)
[2016-05-05] MEDS: Enoxaparin 40 mg Syringe SC SCH (09:53)
--- NOTE | 2016-05-05 10:14 | CP.PCM.PN ---
Subjective - Date & Time of Evaluation Date of Evaluation: 05/05/16 Time of Evaluation: 07:16 - Subjective Subjective: - Patient was seen resting comfortably in bed. Denies any overnight events. Tolerating PO intake, finished his breakfast. Denies, nausea, vomiting, diarrhea. - Patient continues to have a productive cough with clear sputum, no blood noticed. Objective - Vital Signs/Intake and Output Vital Signs (last 24 hours): Temp Pulse Resp BP Pulse Ox 98.3 F 99 H 20 104/61 98 05/05/16 08:41 05/05/16 08:41 05/05/16 08:41 05/05/16 08:41 05/05/16 08:41 - Medications Medications: Current Medications Albuterol (Ventolin Hfa 90 Mcg/Actuation (8 G)) 2 puff INH RQ4 PRN PRN Reason: Shortness of Breath Azithromycin (Zithromax) 1,200 mg PO QWK [facility] Emtricitabine/Tenofovir (Truvada 200 Mg-300 Mg) 1 tab PO DAILY [facility] Last Admin: 05/05/16 09:52 Dose: 1 tab Enoxaparin Sodium (Lovenox) 40 mg SC DAILY [facility] PRN Reason: Protocol Last Admin: 05/05/16 09:53 Dose: 40 mg Home Med (Patient's Own Medication) 1 unit PO DAILY [facility] Last Admin: 05/05/16 09:52 Dose: 1 unit Voriconazole 160 mg/ Sodium (Chloride) 100 mls @ 50 mls/hr IVPB Q12@0400,1600 [facility] Last Admin: 05/05/16 04:44 Dose: 50 mls/hr Piperacillin Sod/Tazobactam (Sod 2.25 gm/ Sodium Chloride) 100 mls @ 100 mls/ hr IVPB Q6 [facility] Last Admin: 05/05/16 09:51 Dose: 100 mls/hr Trimethoprim/Sulfamethoxazole (Bactrim Ds Tab) 1 tab PO MWF [facility] Last Admin: 05/03/16 09:48 Dose: 1 tab - Labs Labs: 05/04/16 14:50 05/02/16 18:30 PT 10.8 SECONDS (9.6-11.2) 05/01/16 10:49 INR 1.04 (0.92-1.08) 05/01/16 10:49 APTT 34.3 SECONDS (23.3-32.5) H 05/01/16 10:49 - Constitutional Appears: No Acute Distress - Head Exam Head Exam: ATRAUMATIC, NORMAL INSPECTION, NORMOCEPHALIC - Eye Exam Eye Exam: Normal appearance - Respiratory Exam Respiratory Exam: Decreased Breath Sounds. absent: Wheezes - Cardiovascular Exam Cardiovascular Exam: REGULAR RHYTHM, +S1, +S2 - GI/Abdominal Exam GI & Abdominal Exam: Soft, Normal Bowel Sounds. absent: Tenderness - Neurological Exam Neurological Exam: Alert, Awake, CN II-XII Intact, Normal Gait, Oriented x3 Assessment and Plan - Assessment and Plan (Free Text) Assessment: Plan: 1) Bilateral Pulmonary Aspergilloma(s) CT chest: Severe left sided volume loss, intracavitary soft tissue mass, Probable BL Aspergilloma Tuberculoma surgery 2012 X Ray: Progressive consolidative changes in left lung, New right lower lobe infiltrate/mass. Dr. Hernández (ID) appreciated Dr. Bardales (Pulm) appreciated AFB x2 collected, Prelim results are neg, final results pending -Voriconazole 200 mg IVPB Q12 (Started on 05/02/16) -Zosyn IVPB Q6 (Started on 05/01/16) -Blood culture no growth in 3 days - Sputum culture: WNL - Aspergillus Antigen detected. Aspergillus Index Value: 2.77 (High) -Follow up : Final AFB sputum results, A terreus (PCR), Aspergillus sputum (PCR ) 2) HIV CD4 (177) (undetectable viral load) -Emtricitabine/ Tenofovir 200mg-300mg Daily -Bactrim DS 1 tab PO MWF -Azithromycin 1,200 mg PO QWK - Hepatitis panel Negative 3) Mild intermitant asthma -Albuterol inhaler PRN 4) DVT prophylaxis - Lovenox
--- NOTE | 2016-05-05 11:27 | CP.PCM.PN ---
Subjective - Date & Time of Evaluation Date of Evaluation: 05/05/16 Time of Evaluation: 11:27 - Subjective Subjective: SOB IMPROVED COUGH LESS NO CHEST PAINS Objective - Vital Signs/Intake and Output Vital Signs (last 24 hours): Temp Pulse Resp BP Pulse Ox 98.3 F 99 H 20 104/61 98 05/05/16 08:41 05/05/16 08:41 05/05/16 08:41 05/05/16 08:41 05/05/16 08:41 - Medications Medications: Current Medications Albuterol (Ventolin Hfa 90 Mcg/Actuation (8 G)) 2 puff INH RQ4 PRN PRN Reason: Shortness of Breath Azithromycin (Zithromax) 1,200 mg PO QWK [facility] Emtricitabine/Tenofovir (Truvada 200 Mg-300 Mg) 1 tab PO DAILY [facility] Last Admin: 05/05/16 09:52 Dose: 1 tab Enoxaparin Sodium (Lovenox) 40 mg SC DAILY [facility] PRN Reason: Protocol Last Admin: 05/05/16 09:53 Dose: 40 mg Home Med (Patient's Own Medication) 1 unit PO DAILY [facility] Last Admin: 05/05/16 09:52 Dose: 1 unit Voriconazole 160 mg/ Sodium (Chloride) 100 mls @ 50 mls/hr IVPB Q12@0400,1600 [facility] Last Admin: 05/05/16 04:44 Dose: 50 mls/hr Piperacillin Sod/Tazobactam (Sod 2.25 gm/ Sodium Chloride) 100 mls @ 100 mls/ hr IVPB Q6 [facility] Last Admin: 05/05/16 09:51 Dose: 100 mls/hr Trimethoprim/Sulfamethoxazole (Bactrim Ds Tab) 1 tab PO MWF [facility] Last Admin: 05/03/16 09:48 Dose: 1 tab - Labs Labs: 05/04/16 14:50 05/02/16 18:30 PT 10.8 SECONDS (9.6-11.2) 05/01/16 10:49 INR 1.04 (0.92-1.08) 05/01/16 10:49 APTT 34.3 SECONDS (23.3-32.5) H 05/01/16 10:49 - Constitutional Appears: Well - Head Exam Head Exam: ATRAUMATIC, NORMAL INSPECTION, NORMOCEPHALIC - Eye Exam Eye Exam: EOMI, Normal appearance, PERRL Pupil Exam: NORMAL ACCOMODATION, PERRL - ENT Exam ENT Exam: Mucous Membranes Moist, Normal Exam - Neck Exam Neck Exam: Full ROM, Normal Inspection. absent: Lymphadenopathy - Respiratory Exam Respiratory Exam: Clear to Ausculation Bilateral, NORMAL BREATHING PATTERN - Cardiovascular Exam Cardiovascular Exam: REGULAR RHYTHM, +S1, +S2. absent: Murmur - GI/Abdominal Exam GI & Abdominal Exam: Soft, Normal Bowel Sounds. absent: Tenderness - Rectal Exam Rectal Exam: NORMAL INSPECTION - Extremities Exam Extremities Exam: Full ROM, Normal Capillary Refill, Normal Inspection. absent : Joint Swelling, Pedal Edema - Back Exam Back Exam: NORMAL INSPECTION - Neurological Exam Neurological Exam: Alert, Awake, CN II-XII Intact, Normal Gait, Oriented x3 - Psychiatric Exam Psychiatric exam: Normal Affect, Normal Mood - Skin Skin Exam: Dry, Intact, Normal Color, Warm Assessment and Plan - Assessment and Plan (Free Text) Assessment: ASPERGILLOMA Plan: CONTINUE CURRENT RX
[2016-05-06] MEDS: SODIUM CHLORIDE 0.9% IVPB SCH ×2 (04:50→16:18)
[2016-05-06] MEDS: VORICONAZOLE IVPB SCH ×2 (04:50→16:18)
[2016-05-06] MEDS: Emtricitabine-Tenofovir 200 mg-300 mg Tab PO SCH (09:40)
[2016-05-06] MEDS: Tmp-Smz 800 mg-160 mg DS Tab PO SCH (09:40)
[2016-05-06] MEDS: Enoxaparin 40 mg Syringe SC SCH (09:40)
[2016-05-06] MEDS: TIVICAY PO SCH (09:40)
--- NOTE | 2016-05-06 09:43 | CP.PCM.PN ---
Subjective - Date & Time of Evaluation Date of Evaluation: 05/06/16 Time of Evaluation: 07:40 - Subjective Subjective: - PT was seen resting comfortably in bed. PT states breathing is improving. Denies any overnight events. He has been tolerating PO intake. Denies nausea, vomiting, diarrhea. Continues to have a productive cough with sputum, no blood . Objective - Vital Signs/Intake and Output Vital Signs (last 24 hours): Temp Pulse Resp BP Pulse Ox 98.2 F 81 20 95/63 L 98 05/06/16 08:27 05/06/16 08:27 05/06/16 08:27 05/06/16 08:27 05/06/16 08:27 - Medications Medications: Current Medications Albuterol (Ventolin Hfa 90 Mcg/Actuation (8 G)) 2 puff INH RQ4 PRN PRN Reason: Shortness of Breath Azithromycin (Zithromax) 1,200 mg PO QWK [facility] Emtricitabine/Tenofovir (Truvada 200 Mg-300 Mg) 1 tab PO DAILY [facility] Last Admin: 05/06/16 09:40 Dose: 1 tab Enoxaparin Sodium (Lovenox) 40 mg SC DAILY [facility] PRN Reason: Protocol Last Admin: 05/06/16 09:40 Dose: 40 mg Home Med (Patient's Own Medication) 1 unit PO DAILY [facility] Last Admin: 05/06/16 09:40 Dose: 1 unit Voriconazole 160 mg/ Sodium (Chloride) 100 mls @ 50 mls/hr IVPB Q12@0400,1600 [facility] Last Admin: 05/06/16 04:50 Dose: 50 mls/hr Piperacillin Sod/Tazobactam (Sod 2.25 gm/ Sodium Chloride) 100 mls @ 100 mls/ hr IVPB Q6 [facility] Last Admin: 05/06/16 03:37 Dose: 100 mls/hr Trimethoprim/Sulfamethoxazole (Bactrim Ds Tab) 1 tab PO MWF [facility] Last Admin: 05/06/16 09:40 Dose: 1 tab - Labs Labs: 05/04/16 14:50 05/02/16 18:30 PT 10.8 SECONDS (9.6-11.2) 05/01/16 10:49 INR 1.04 (0.92-1.08) 05/01/16 10:49 APTT 34.3 SECONDS (23.3-32.5) H 05/01/16 10:49 - Constitutional Appears: No Acute Distress - Head Exam Head Exam: ATRAUMATIC, NORMAL INSPECTION, NORMOCEPHALIC - Respiratory Exam Respiratory Exam: Decreased Breath Sounds. absent: Wheezes - Cardiovascular Exam Cardiovascular Exam: REGULAR RHYTHM, +S1, +S2 - GI/Abdominal Exam GI & Abdominal Exam: Soft, Normal Bowel Sounds. absent: Tenderness Assessment and Plan - Assessment and Plan (Free Text) Assessment: 1) Bilateral Pulmonary Aspergilloma(s) Failed outpatient management w/ itraconazole and was admitted for IV Rx. CT chest: Severe left sided volume loss, intracavitary soft tissue mass, Probable BL Aspergilloma Tuberculoma surgery 2011 X Ray: Progressive consolidative changes in left lung, New right lower lobe infiltrate/mass. Dr. Hernández (ID) appreciated & Dr. Bardales (Pulm) appreciated AFB x2 collected, Prelim results are neg, final results pending -Voriconazole 200 mg IVPB Q12 (Started on 05/02/16) -Zosyn IVPB Q6 (Started on 05/01/16) - Aspergillus Antigen detected. Aspergillus Index Value: 2.77 (High) -Follow up : Final AFB sputum results, A terreus (PCR), Aspergillus sputum (PCR ) 2) AIDS (177) (undetectable viral load) -Emtricitabine/ Tenofovir 200mg-300mg Daily -Bactrim DS 1 tab PO MWF -Azithromycin 1,200 mg PO QWK - Hepatitis panel Negative 3) Mild intermitant asthma -Albuterol inhaler PRN 4) DVT prophylaxis - Lovenox
[2016-05-07] MEDS: SODIUM CHLORIDE 0.9% IVPB SCH ×2 (04:38→17:43)
[2016-05-07] MEDS: VORICONAZOLE IVPB SCH ×2 (04:38→17:43)
--- NOTE | 2016-05-07 08:44 | CP.PCM.PN ---
Subjective - Date & Time of Evaluation Date of Evaluation: 05/07/16 Time of Evaluation: 07:30 - Subjective Subjective: Pt seen resting in bed comfortably. Denies any overnight activities. He has been tolerating PO intake. Denies N/V/D - Has had normal bowl and bladder moements. - Continues to have a productive cough and sputum, no blood. Objective - Vital Signs/Intake and Output Vital Signs (last 24 hours): Temp Pulse Resp BP Pulse Ox 98.4 F 87 20 93/60 L 97 05/06/16 22:17 05/06/16 22:17 05/06/16 22:17 05/06/16 22:17 05/06/16 22:17 - Medications Medications: Current Medications Albuterol (Ventolin Hfa 90 Mcg/Actuation (8 G)) 2 puff INH RQ4 PRN PRN Reason: Shortness of Breath Emtricitabine/Tenofovir (Truvada 200 Mg-300 Mg) 1 tab PO DAILY [facility] Last Admin: 05/06/16 09:40 Dose: 1 tab Enoxaparin Sodium (Lovenox) 40 mg SC DAILY [facility] PRN Reason: Protocol Last Admin: 05/06/16 09:40 Dose: 40 mg Home Med (Patient's Own Medication) 1 unit PO DAILY [facility] Last Admin: 05/06/16 09:40 Dose: 1 unit Voriconazole 160 mg/ Sodium (Chloride) 100 mls @ 50 mls/hr IVPB Q12@0400,1600 [facility] Last Admin: 05/07/16 04:38 Dose: 50 mls/hr Piperacillin Sod/Tazobactam (Sod 2.25 gm/ Sodium Chloride) 100 mls @ 100 mls/ hr IVPB Q6 [facility] Last Admin: 05/07/16 03:27 Dose: 100 mls/hr Trimethoprim/Sulfamethoxazole (Bactrim Ds Tab) 1 tab PO MWF [facility] Last Admin: 05/06/16 09:40 Dose: 1 tab - Labs Labs: 05/04/16 14:50 05/02/16 18:30 PT 10.8 SECONDS (9.6-11.2) 05/01/16 10:49 INR 1.04 (0.92-1.08) 05/01/16 10:49 APTT 34.3 SECONDS (23.3-32.5) H 05/01/16 10:49 - Constitutional Appears: No Acute Distress - Head Exam Head Exam: NORMAL INSPECTION - Respiratory Exam Respiratory Exam: NORMAL BREATHING PATTERN Additional comments: Decreased breath sounds b/l - Cardiovascular Exam Cardiovascular Exam: REGULAR RHYTHM, +S1, +S2 - GI/Abdominal Exam GI & Abdominal Exam: Soft, Normal Bowel Sounds. absent: Tenderness - Neurological Exam Neurological Exam: Alert, Awake, CN II-XII Intact, Oriented x3 Assessment and Plan - Assessment and Plan (Free Text) Assessment: 1) Bilateral Pulmonary Aspergilloma(s) Failed outpatient management w/ itraconazole and was admitted for IV Rx. CT chest: Severe left sided volume loss, intracavitary soft tissue mass, Probable BL Aspergilloma Tuberculoma surgery 2011 X Ray: Progressive consolidative changes in left lung, New right lower lobe infiltrate/mass. Dr. Hernández (ID) appreciated & Dr. Bardales (Pulm) appreciated AFB x2 collected, Prelim results are neg, final results pending -Voriconazole 200 mg IVPB Q12 (Started on 05/02/16) -Zosyn IVPB Q6 (Started on 05/01/16) - Aspergillus Antigen detected. Aspergillus Index Value: 2.77 (High) -Follow up : Final AFB sputum results, A terreus (PCR), Aspergillus sputum (PCR ) 2) AIDS (177) (undetectable viral load) -Emtricitabine/ Tenofovir 200mg-300mg Daily -Bactrim DS 1 tab PO MWF -Azithromycin 1,200 mg PO QWK 3) Mild intermitant asthma -Albuterol inhaler PRN 4) DVT prophylaxis - Lovenox
--- NOTE | 2016-05-07 09:08 | CP.PCM.PN ---
Subjective - Date & Time of Evaluation Date of Evaluation: 05/07/16 Time of Evaluation: 09:08 - Subjective Subjective: NO NEW CLINICAL FINDINGS NO CHEST PAINS/SOB SPUTUM AFB NEGATIVE X 3 Objective - Vital Signs/Intake and Output Vital Signs (last 24 hours): Temp Pulse Resp BP Pulse Ox 97.8 F 92 H 18 100/66 96 05/07/16 08:49 05/07/16 08:49 05/07/16 08:49 05/07/16 08:49 05/07/16 08:49 - Medications Medications: Current Medications Albuterol (Ventolin Hfa 90 Mcg/Actuation (8 G)) 2 puff INH RQ4 PRN PRN Reason: Shortness of Breath Emtricitabine/Tenofovir (Truvada 200 Mg-300 Mg) 1 tab PO DAILY [facility] Last Admin: 05/06/16 09:40 Dose: 1 tab Enoxaparin Sodium (Lovenox) 40 mg SC DAILY [facility] PRN Reason: Protocol Last Admin: 05/06/16 09:40 Dose: 40 mg Home Med (Patient's Own Medication) 1 unit PO DAILY [facility] Last Admin: 05/06/16 09:40 Dose: 1 unit Voriconazole 160 mg/ Sodium (Chloride) 100 mls @ 50 mls/hr IVPB Q12@0400,1600 [facility] Last Admin: 05/07/16 04:38 Dose: 50 mls/hr Piperacillin Sod/Tazobactam (Sod 2.25 gm/ Sodium Chloride) 100 mls @ 100 mls/ hr IVPB Q6 [facility] Last Admin: 05/07/16 03:27 Dose: 100 mls/hr Trimethoprim/Sulfamethoxazole (Bactrim Ds Tab) 1 tab PO MWF [facility] Last Admin: 05/06/16 09:40 Dose: 1 tab - Labs Labs: 05/04/16 14:50 05/02/16 18:30 PT 10.8 SECONDS (9.6-11.2) 05/01/16 10:49 INR 1.04 (0.92-1.08) 05/01/16 10:49 APTT 34.3 SECONDS (23.3-32.5) H 05/01/16 10:49 - Constitutional Appears: No Acute Distress - Head Exam Head Exam: ATRAUMATIC, NORMAL INSPECTION, NORMOCEPHALIC - Eye Exam Eye Exam: EOMI, Normal appearance, PERRL Pupil Exam: NORMAL ACCOMODATION, PERRL - ENT Exam ENT Exam: Mucous Membranes Moist, Normal Exam - Neck Exam Neck Exam: Full ROM, Normal Inspection. absent: Lymphadenopathy - Respiratory Exam Respiratory Exam: Prolonged Expiratory Phase, NORMAL BREATHING PATTERN - Cardiovascular Exam Cardiovascular Exam: REGULAR RHYTHM, +S1, +S2. absent: Murmur - GI/Abdominal Exam GI & Abdominal Exam: Soft, Normal Bowel Sounds. absent: Tenderness - Rectal Exam Rectal Exam: NORMAL INSPECTION - Extremities Exam Extremities Exam: Full ROM, Normal Capillary Refill, Normal Inspection. absent : Joint Swelling, Pedal Edema - Back Exam Back Exam: NORMAL INSPECTION - Neurological Exam Neurological Exam: Alert, Awake, CN II-XII Intact, Normal Gait, Oriented x3 - Psychiatric Exam Psychiatric exam: Normal Affect, Normal Mood - Skin Skin Exam: Dry, Intact, Normal Color, Warm Assessment and Plan - Assessment and Plan (Free Text) Assessment: ASPERGILLOMA NO EVIDENCE OF TB RECURRENCE Plan: OK TO D/C HOME ON ANTIFUNGAL RX RECOMMENDED BY ID--CONTINUE OUT PT MONITORING WITH SERIAL CXRS WILL SIGN OFF CASE AND SEE AGAIN AT YOUR REQUEST
[2016-05-07] MEDS: Enoxaparin 40 mg Syringe SC SCH (10:03)
[2016-05-07] MEDS: TIVICAY PO SCH (10:04)
[2016-05-07] MEDS: Emtricitabine-Tenofovir 200 mg-300 mg Tab PO SCH (10:04)
--- NOTE | 2016-05-07 19:34 | CP.PCM.PN ---
Subjective - Date & Time of Evaluation Date of Evaluation: 05/07/16 Time of Evaluation: 19:35 - Subjective Subjective: ID NOTE HAVE REVIEWED CHART ,EXAMINED PATIENT WOULD CONTINUE IV VORIOCONAZOLE SHOULD HAVE THORACIC SURGERY OPINION SPUTUM IS NEGATIVE FOR AFB Objective - Vital Signs/Intake and Output Vital Signs (last 24 hours): Temp Pulse Resp BP Pulse Ox 98.4 F 86 18 91/55 L 97 05/07/16 17:00 05/07/16 17:00 05/07/16 17:00 05/07/16 17:00 05/07/16 17:00 - Medications Medications: Current Medications Albuterol (Ventolin Hfa 90 Mcg/Actuation (8 G)) 2 puff INH RQ4 PRN PRN Reason: Shortness of Breath Emtricitabine/Tenofovir (Truvada 200 Mg-300 Mg) 1 tab PO DAILY [facility] Last Admin: 05/07/16 10:04 Dose: 1 tab Enoxaparin Sodium (Lovenox) 40 mg SC DAILY [facility] PRN Reason: Protocol Last Admin: 05/07/16 10:03 Dose: 40 mg Home Med (Patient's Own Medication) 1 unit PO DAILY [facility] Last Admin: 05/07/16 10:04 Dose: 1 unit Voriconazole 160 mg/ Sodium (Chloride) 100 mls @ 50 mls/hr IVPB Q12@0400,1600 [facility] Last Admin: 05/07/16 17:43 Dose: 50 mls/hr Piperacillin Sod/Tazobactam (Sod 2.25 gm/ Sodium Chloride) 100 mls @ 100 mls/ hr IVPB Q6 [facility] Last Admin: 05/07/16 15:17 Dose: 100 mls/hr Trimethoprim/Sulfamethoxazole (Bactrim Ds Tab) 1 tab PO MWF [facility] Last Admin: 05/06/16 09:40 Dose: 1 tab - Labs Labs: 05/04/16 14:50 05/02/16 18:30 PT 10.8 SECONDS (9.6-11.2) 05/01/16 10:49 INR 1.04 (0.92-1.08) 05/01/16 10:49 APTT 34.3 SECONDS (23.3-32.5) H 05/01/16 10:49
[2016-05-07 20:20] VITALS: RESP 20; O2SAT 96
[2016-05-07 20:23] LABS: (1-3)-B-D GLUCAN 348 pg/mL (())
[2016-05-08] MEDS: SODIUM CHLORIDE 0.9% IVPB SCH (05:10)
[2016-05-08] MEDS: VORICONAZOLE IVPB SCH (05:10)
[2016-05-08 08:13] LABS: HEMATOCRIT 36.6 % (35.0-51.0); MEAN CELL VOLUME 88.8 fl (80.0-94.0); MEAN CORPUSCULAR HEMOGLOBIN 28.1 pg (27.0-31.0); MEAN CORPUSCULAR HGB CONC 31.7 g/dL (33.0-37.0); RED CELL DISTRIBUTION WIDTH 15.2 % (11.5-14.5); WHITE BLOOD COUNT 7.1 K/uL (4.8-10.8)
[2016-05-08] MEDS: Enoxaparin 40 mg Syringe SC SCH (08:27)
[2016-05-08] MEDS: TIVICAY PO SCH (08:28)
[2016-05-08] MEDS: Emtricitabine-Tenofovir 200 mg-300 mg Tab PO SCH (08:28)
[2016-05-08] MEDS: Tmp-Smz 800 mg-160 mg DS Tab PO SCH (08:28)
--- NOTE | 2016-05-08 09:48 | CP.PCM.PN ---
Subjective - Date & Time of Evaluation Date of Evaluation: 05/08/16 Time of Evaluation: 07:00 - Subjective Subjective: Patient is seen resting at bedside. Patient is no longer on isolation, after being ruled out for tuberculosis. - Patient states his breathing is better. Has been tolerating PO intake. Continues to have a productive cough with clear sputum, no blood noticed in sputum. Patient denies any chest pain, nausea, vomiting, diarrhea, SOB. Objective - Vital Signs/Intake and Output Vital Signs (last 24 hours): Temp Pulse Resp BP Pulse Ox 98.6 F 88 20 90/63 L 96 05/07/16 20:19 05/07/16 20:19 05/07/16 20:19 05/07/16 20:19 05/07/16 20:19 - Medications Medications: Current Medications Albuterol (Ventolin Hfa 90 Mcg/Actuation (8 G)) 2 puff INH RQ4 PRN PRN Reason: Shortness of Breath Emtricitabine/Tenofovir (Truvada 200 Mg-300 Mg) 1 tab PO DAILY [facility] Last Admin: 05/08/16 08:28 Dose: 1 tab Enoxaparin Sodium (Lovenox) 40 mg SC DAILY [facility] PRN Reason: Protocol Last Admin: 05/08/16 08:27 Dose: 40 mg Home Med (Patient's Own Medication) 1 unit PO DAILY [facility] Last Admin: 05/08/16 08:28 Dose: 1 unit Voriconazole 160 mg/ Sodium (Chloride) 100 mls @ 50 mls/hr IVPB Q12@0400,1600 [facility] Last Admin: 05/08/16 05:10 Dose: 50 mls/hr Piperacillin Sod/Tazobactam (Sod 2.25 gm/ Sodium Chloride) 100 mls @ 100 mls/ hr IVPB Q6 [facility] Last Admin: 05/08/16 04:08 Dose: 100 mls/hr Trimethoprim/Sulfamethoxazole (Bactrim Ds Tab) 1 tab PO MWF [facility] Last Admin: 05/08/16 08:28 Dose: 1 tab - Labs Labs: 05/08/16 07:00 05/02/16 18:30 PT 10.8 SECONDS (9.6-11.2) 05/01/16 10:49 INR 1.04 (0.92-1.08) 05/01/16 10:49 APTT 34.3 SECONDS (23.3-32.5) H 05/01/16 10:49 - Constitutional Appears: No Acute Distress - Head Exam Head Exam: NORMAL INSPECTION - Respiratory Exam Respiratory Exam: Decreased Breath Sounds (decreased breath sounds b/l), Rales ( Rales noticed on the right side). absent: Wheezes - Cardiovascular Exam Cardiovascular Exam: REGULAR RHYTHM, +S1, +S2 - GI/Abdominal Exam GI & Abdominal Exam: Soft, Normal Bowel Sounds. absent: Tenderness - Extremities Exam Extremities Exam: Normal Inspection. absent: Tenderness - Neurological Exam Neurological Exam: Alert, Awake, CN II-XII Intact, Oriented x3 Assessment and Plan - Assessment and Plan (Free Text) Assessment: Assessment: 1) Bilateral Pulmonary Aspergilloma(s) Failed outpatient management w/ itraconazole and was admitted for IV Rx. CT chest: Severe left sided volume loss, intracavitary soft tissue mass, Probable BL Aspergilloma Tuberculoma surgery 2011 X Ray: Progressive consolidative changes in left lung, New right lower lobe infiltrate/mass. Dr. Hernández (ID) appreciated & Dr. Bardales (Pulm) appreciated AFB x3 negative -Voriconazole 200 mg IVPB Q12 (Started on 05/02/16) -Zosyn IVPB Q6 (Started on 05/01/16) - Beta (1,3) D Glucan:348 (increased) - Aspergillus Antigen detected. Aspergillus flavus, Aspergillulus fumigatus ab, Aspergillus Index Value: 2.77 (High) - Thoracic Surgery Consult appreciated: Surgery does not believe patient is a candidate for surgery. -Follow up : A terreus (PCR), Aspergillus sputum (PCR) - F/U w/ ID about possibility to transition to PO medication. 2) AIDS (177) (undetectable viral load) -Emtricitabine/ Tenofovir 200mg-300mg Daily -Bactrim DS 1 tab PO MWF -Azithromycin 1,200 mg PO QWK 3) Mild intermitant asthma -Albuterol inhaler PRN 4) DVT prophylaxis - Lovenox
[2016-05-08 10:17] VITALS: BP 101/66; PULSE 105; TEMP 98
--- NOTE | 2016-05-08 10:36 | CP.PCM.CON ---
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 Pt presented to ER with productive cough for 1 1/2 years. Pt states cough produces yellow sputum, no blood, no foul odor. He also admits to intermittent fevers, chills, fatigue and night sweats. Denies any decrease in appetite. Has been steadily losing weight since surgery. Since admission pt found to have aspergillosis, being treated with voriconizole. Currently, pt states his symptoms have resolved and he is feeling much better. CT surgery consulted regarding possible resection of aspergilloma. Review of Systems - Review of Systems All systems: reviewed and no additional remarkable complaints except (as per hpi ) Past Patient History - Infectious Disease Hx of Infectious Diseases: None - Past Medical History & Family History Past Medical History?: Yes - Past Social History Alcohol: None Drugs: Denies - CARDIAC Hx Cardiac Disorders: No - PULMONARY Hx Respiratory Disorders: Yes Hx Tuberculosis: Yes Other/Comment: tuberculoma of lung - NEUROLOGICAL Hx Neurological Disorder: No - HEENT Hx HEENT Problems: Yes - RENAL Hx Chronic Kidney Disease: No - ENDOCRINE/METABOLIC Hx Endocrine Disorders: No - HEMATOLOGICAL/ONCOLOGICAL Hx Human Immunodeficiency Virus (HIV): Yes - INTEGUMENTARY Hx Dermatological Problems: No - MUSCULOSKELETAL/RHEUMATOLOGICAL Hx Musculoskeletal Disorders: No Hx Falls: No - GASTROINTESTINAL Hx Gastrointestinal Disorders: No - GENITOURINARY/GYNECOLOGICAL Hx Genitourinary Disorders: No - PSYCHIATRIC Hx Psychophysiologic Disorder: No Hx Substance Use: No - SURGICAL HISTORY Hx Surgeries: Yes Hx Pulmonary Surgery: Yes (tuberculoma) - ANESTHESIA Hx Anesthesia: Yes Hx Anesthesia Reactions: No Hx Malignant Hyperthermia: No Meds Home Medications: Home Medication List Medication Instructions Recorded Confirmed Type Voriconazole 200 mg PO BID #60 tablet 05/08/16 Rx Allergies/Adverse Reactions: Allergies Allergy/AdvReac Type Severity Reaction Status Date / Time No Known Allergies Allergy Verified 12/28/14 19:22 - Medications Medications: Current Medications Albuterol (Ventolin Hfa 90 Mcg/Actuation (8 G)) 2 puff INH RQ4 PRN PRN Reason: Shortness of Breath Emtricitabine/Tenofovir (Truvada 200 Mg-300 Mg) 1 tab PO DAILY [facility] Last Admin: 05/08/16 08:28 Dose: 1 tab Enoxaparin Sodium (Lovenox) 40 mg SC DAILY [facility] PRN Reason: Protocol Last Admin: 05/08/16 08:27 Dose: 40 mg Home Med (Patient's Own Medication) 1 unit PO DAILY [facility] Last Admin: 05/08/16 08:28 Dose: 1 unit Voriconazole 160 mg/ Sodium (Chloride) 100 mls @ 50 mls/hr IVPB Q12@0400,1600 [facility] Last Admin: 05/08/16 05:10 Dose: 50 mls/hr Piperacillin Sod/Tazobactam (Sod 2.25 gm/ Sodium Chloride) 100 mls @ 100 mls/ hr IVPB Q6 [facility] Last Admin: 05/08/16 09:53 Dose: 100 mls/hr Trimethoprim/Sulfamethoxazole (Bactrim Ds Tab) 1 tab PO MWF [facility] Last Admin: 05/08/16 08:28 Dose: 1 tab Physical Exam - Constitutional Appears: Non-toxic, No Acute Distress - Neck Exam Neck exam: Positive for: Normal Inspection. Negative for: Lymphadenopathy, Tenderness - Respiratory Exam Respiratory Exam: absent: Accessory Muscle Use, Clear to Auscultation Bilateral (decreased on left side), Rales, Wheezes, Respiratory Distress - Cardiovascular Exam Cardiovascular Exam: REGULAR RHYTHM. absent: Tachycardia - GI/Abdominal Exam GI & Abdominal Exam: Soft. absent: Tenderness - Extremities Exam Extremities exam: Positive for: normal inspection. Negative for: pedal edema - Neurological Exam Neurological exam: Alert, Oriented x3 - Psychiatric Exam Psychiatric exam: Normal Affect, Normal Mood - Skin Skin Exam: Normal Color, Warm Results - Vital Signs Recent Vital Signs: Last Vital Signs Temp 98 F 05/08/16 10:16 Pulse 105 H 05/08/16 10:16 Resp 20 05/08/16 10:16 BP 101/66 05/08/16 10:16 Pulse Ox 96 05/08/16 10:16 - Labs Result Diagrams: 05/08/16 07:00 05/02/16 18:30 Labs: Laboratory Results - last 24 hr 05/02/16 05/08/16 06:10 07:00 WBC 7.1 RBC 4.12 L Hgb 11.6 L Hct 36.6 MCV 88.8 MCH 28.1 MCHC 31.7 L RDW 15.2 H Plt Count 359 Aspergillus flavus Ab Positive H Aspergill fumigatus Ab Positive H Aspergillus niger Ab Negative Beta-(1,3)-D-Glucan 348 H Assessment & Plan - Assessment and Plan (Free Text) Assessment: 65M with history of left lung lobectomy now with aspergillosis Plan: cont IV abx per ID pt should be D/C with continued PO treatment currently symptoms are resolving, given history of left sided resection, pt is already functioning off of minimal lung volumes (basically one lung). He has compensated well, but further resection would carry with it significant risk of post-operative complications Recommend full course treatment as outpatient with anti-fungals and close f/u no surgical intervention planned at this time d/w Dr Jayla Castro, PGY2 - Date & Time Date: 05/08/16 Time: 13:14
--- NOTE | 2016-05-08 12:44 | CP.PCM.CON ---
History of Present Illness - History of Present Illness History of Present Illness: Reason for consultation: Aspergillomas Requested by: Dr. Faust. Past Patient History - Infectious Disease Hx of Infectious Diseases: None - Past Medical History & Family History Past Medical History?: Yes - Past Social History Alcohol: None Drugs: Denies - CARDIAC Hx Cardiac Disorders: No - PULMONARY Hx Respiratory Disorders: Yes Hx Tuberculosis: Yes Other/Comment: tuberculoma of lung - NEUROLOGICAL Hx Neurological Disorder: No - HEENT Hx HEENT Problems: Yes - RENAL Hx Chronic Kidney Disease: No - ENDOCRINE/METABOLIC Hx Endocrine Disorders: No - HEMATOLOGICAL/ONCOLOGICAL Hx Human Immunodeficiency Virus (HIV): Yes - INTEGUMENTARY Hx Dermatological Problems: No - MUSCULOSKELETAL/RHEUMATOLOGICAL Hx Musculoskeletal Disorders: No Hx Falls: No - GASTROINTESTINAL Hx Gastrointestinal Disorders: No - GENITOURINARY/GYNECOLOGICAL Hx Genitourinary Disorders: No - PSYCHIATRIC Hx Psychophysiologic Disorder: No Hx Substance Use: No - SURGICAL HISTORY Hx Surgeries: Yes Hx Pulmonary Surgery: Yes (tuberculoma) - ANESTHESIA Hx Anesthesia: Yes Hx Anesthesia Reactions: No Hx Malignant Hyperthermia: No Meds Home Medications: Home Medication List Medication Instructions Recorded Confirmed Type Voriconazole 200 mg PO BID #60 tablet 05/08/16 Rx Allergies/Adverse Reactions: Allergies Allergy/AdvReac Type Severity Reaction Status Date / Time No Known Allergies Allergy Verified 12/28/14 19:22 - Medications Medications: Current Medications Albuterol (Ventolin Hfa 90 Mcg/Actuation (8 G)) 2 puff INH RQ4 PRN PRN Reason: Shortness of Breath Emtricitabine/Tenofovir (Truvada 200 Mg-300 Mg) 1 tab PO DAILY [facility] Last Admin: 05/08/16 08:28 Dose: 1 tab Enoxaparin Sodium (Lovenox) 40 mg SC DAILY [facility] PRN Reason: Protocol Last Admin: 05/08/16 08:27 Dose: 40 mg Home Med (Patient's Own Medication) 1 unit PO DAILY [facility] Last Admin: 05/08/16 08:28 Dose: 1 unit Voriconazole 160 mg/ Sodium (Chloride) 100 mls @ 50 mls/hr IVPB Q12@0400,1600 [facility] Last Admin: 05/08/16 05:10 Dose: 50 mls/hr Trimethoprim/Sulfamethoxazole (Bactrim Ds Tab) 1 tab PO MWF [facility] Last Admin: 05/08/16 08:28 Dose: 1 tab Results - Vital Signs Recent Vital Signs: Last Vital Signs Temp 98 F 05/08/16 10:16 Pulse 105 H 05/08/16 10:16 Resp 20 05/08/16 10:16 BP 101/66 05/08/16 10:16 Pulse Ox 96 05/08/16 10:16 - Labs Result Diagrams: 05/08/16 07:00 05/02/16 18:30 Labs: Laboratory Results - last 24 hr 05/02/16 05/08/16 06:10 07:00 WBC 7.1 RBC 4.12 L Hgb 11.6 L Hct 36.6 MCV 88.8 MCH 28.1 MCHC 31.7 L RDW 15.2 H Plt Count 359 Aspergillus flavus Ab Positive H Aspergill fumigatus Ab Positive H Aspergillus niger Ab Negative Beta-(1,3)-D-Glucan 348 H
--- NOTE | 2016-05-08 16:48 | CP.PCM.DIS ---
Provider - Provider Date of Admission: 05/01/16 11:53 Attending physician: Deedee Faust MD Primary care physician: Samuel Dutta MD Time Spent in preparation of Discharge (in minutes): 30 Diagnosis - Discharge Diagnosis (1) AIDS (acquired immunodeficiency syndrome), CD4 <=200 Status: Chronic (2) Aspergilloma Status: Acute Hospital Course - Lab Results Lab Results: Micro Results 05/04/16 13:00 Other: Please Indicate Mycobacterial Culture - Preliminary 05/05/16 14:09 Other: Please Indicate Mycobacterial Culture - Preliminary 05/02/16 16:13 Sputum Gram Stain - Final 05/02/16 16:13 Sputum Sputum Culture - Final NORMAL ORAL [place] 05/02/16 20:00 Other: Please Indicate Mycobacterial Culture - Preliminary Most Recent Lab Values WBC 7.1 K/uL (4.8-10.8) 05/08/16 07:00 RBC 4.12 Mil/uL (4.40-5.90) L 05/08/16 07:00 Hgb 11.6 g/dL (12.0-18.0) L 05/08/16 07:00 Hct 36.6 % (35.0-51.0) 05/08/16 07:00 MCV 88.8 fl (80.0-94.0) 05/08/16 07:00 MCH 28.1 pg (27.0-31.0) 05/08/16 07:00 MCHC 31.7 g/dL (33.0-37.0) L 05/08/16 07:00 RDW 15.2 % (11.5-14.5) H 05/08/16 07:00 Plt Count 359 K/uL (130-400) 05/08/16 07:00 MPV 6.7 fl (7.2-11.7) L 05/01/16 10:49 Neut % (Auto) 40.4 % (50.0-75.0) L 05/01/16 10:49 Lymph % (Auto) 33.0 % (20.0-40.0) 05/01/16 10:49 [place] % (Auto) 6.8 % (0.0-10.0) 05/01/16 10:49 Eos % (Auto) 19.0 % (0.0-4.0) H 05/01/16 10:49 Baso % (Auto) 0.8 % (0.0-2.0) 05/01/16 10:49 Neut # 3.0 K/uL (1.8-7.0) 05/01/16 10:49 Lymph # 2.5 K/uL (1.0-4.3) 05/01/16 10:49 [place] # 0.5 K/uL (0.0-0.8) 05/01/16 10:49 Eos # 1.4 K/uL (0.0-0.7) H 05/01/16 10:49 Baso # 0.1 K/uL (0.0-0.2) 05/01/16 10:49 PT 10.8 SECONDS (9.6-11.2) 05/01/16 10:49 INR 1.04 (0.92-1.08) 05/01/16 10:49 APTT 34.3 SECONDS (23.3-32.5) H 05/01/16 10:49 pO2 28 mm/Hg (30-55) L 05/01/16 12:43 VBG pH 7.38 (7.32-7.43) 05/01/16 12:43 VBG pCO2 50 mmHg (40-60) 05/01/16 12:43 VBG HCO3 26.3 mmol/L 05/01/16 12:43 VBG Total CO2 31.1 mmol/L (22-28) H 05/01/16 12:43 VBG O2 Sat (Calc) 48.5 % (40-65) 05/01/16 12:43 VBG Base Excess 3.4 mmol/L (0.0-2.0) H 05/01/16 12:43 VBG Potassium 4.0 mmol/L (3.6-5.2) 05/01/16 12:43 Sodium 134.0 mmol/L (132-148) 05/01/16 12:43 Chloride 107.0 mmol/L (98-107) 05/01/16 12:43 Glucose 89 mg/dL (75-110) 05/01/16 12:43 Lactate 1.2 mmol/L (0.7-2.1) 05/01/16 12:43 FiO2 21.0 % 05/01/16 12:43 Blood Gas Comments Lactate 3.0 05/01/16 11:13 Crit Value Called To jania Richard 05/01/16 11:13 Crit Value Called By 203 05/01/16 11:13 Crit Value Read Back Y 05/01/16 11:13 Blood Gas Notified Time 1118 05/01/16 11:13 Sodium 144 mmol/l (132-148) 05/02/16 18:30 Potassium 4.2 MMOL/L (3.6-5.0) 05/02/16 18:30 Chloride 103 mmol/L (98-107) 05/02/16 18:30 Carbon Dioxide 27 mmol/L (22-30) 05/02/16 18:30 Anion Gap 17 (10-20) 05/02/16 18:30 BUN 18 mg/dl (9-20) 05/02/16 18:30 Creatinine 0.9 mg/dL (0.8-1.5) 05/02/16 18:30 Est GFR ( Amer) > 60 05/02/16 18:30 Est GFR (Non-Af Amer) > 60 05/02/16 18:30 Random Glucose 126 mg/dL (75-110) H 05/02/16 18:30 Calcium 8.9 mg/dL (8.4-10.2) 05/02/16 18:30 Phosphorus 3.0 mg/dl (2.5-4.5) 05/01/16 10:49 Magnesium 2.0 MG/DL (1.6-2.3) 05/01/16 10:49 Total Bilirubin < 0.1 mg/dl (0.2-1.3) L 05/02/16 18:30 AST 47 U/L (17-59) 05/02/16 18:30 ALT 30 U/L (21-72) 05/02/16 18:30 Alkaline Phosphatase 156 U/L (38-126) H 05/02/16 18:30 Troponin I < 0.0120 ng/mL (0.00-0.120) 05/01/16 10:49 NT-Pro-B Natriuret Pep 147 pg/ml (0-900) 05/01/16 10:49 Total Protein 7.4 G/DL (6.3-8.2) 05/02/16 18:30 Albumin 3.4 g/dL (3.5-5.0) L 05/02/16 18:30 Globulin 4.1 gm/dL (2.2-3.9) H 05/02/16 18:30 Albumin/Globulin Ratio 0.8 (1.0-2.1) L 05/02/16 18:30 Venous Blood Potassium 4.0 mmol/L (3.6-5.2) 05/01/16 12:43 Hepatitis A IgM Ab Negative (NEGATIVE) 05/03/16 12:32 Hep Bs Antigen Negative (NEGATIVE) 05/03/16 12:32 Hep B Core IgM Ab Negative (NEGATIVE) 05/03/16 12:32 Hepatitis C Antibody Negative (NEGATIVE) 05/03/16 12:32 Aspergillus Antigen Detected (Not Detected) H 05/02/16 06:10 Aspergillus flavus Ab Positive (Negative) H 05/02/16 06:10 Aspergill fumigatus Ab Positive (Negative) H 05/02/16 06:10 Aspergillus niger Ab Negative (Negative) 05/02/16 06:10 Aspergillus Index Value 2.77 (<0.50) H* 05/02/16 06:10 Beta-(1,3)-D-Glucan 348 pg/mL (()) H 05/02/16 06:10 - Hospital Course Hospital Course: 64 YO M w/ HIV who failed outpatient management for an aspergiloma was admitted for IV antifungal treatment. He was worked up and was negative for AFBx3. He was given IV Voriconazole treatment. Also completed a course of Zosyn. X Ray : Showed progressive consoladative changes changes in left lung. - Surgery was consulted, and dont think the patient is a canidate for surgical intervention. - PAtient has been given a script for PO antifungal medication. Has been advised to get a vanco trough done in 5 days. Follow up w/ PMD within the next week. Ambulatory Order: TMP-SMX Albuterol [place] Truvada Vit D 1000 iu Voriconazole 200 mg BID Discharge Exam - Head Exam Head Exam: NORMAL INSPECTION - Eye Exam Eye Exam: Normal appearance - Respiratory Exam Respiratory Exam: Decreased Breath Sounds, NORMAL BREATHING PATTERN - Cardiovascular Exam Cardiovascular Exam: REGULAR RHYTHM, +S1, +S2 - GI/Abdominal Exam GI & Abdominal Exam: Normal Bowel Sounds, Soft. absent: Tenderness - Neurological Exam Neurological exam: Alert, CN II-XII Intact, Oriented x3 Discharge Plan - Discharge Medications Prescriptions: Voriconazole 200 mg PO BID #60 tablet - Follow Up Plan Condition: FAIR Disposition: HOME/ ROUTINE Instructions: Voriconazole (By mouth), How Your Lungs Work (DC) Additional Instructions: - Voriconazole Trough needs to be done in 5 days after admission. (05/13/16). - Follow up w/ PMD w/in 1 week of being discharged. Ambulatory Order: TMP-SMX Albuterol T[place]ex [place] Vit D 1000 iu Voriconazole 200 mg BID Referrals: Samuel Dutta MD [Primary Care Provider] -
== END 2016-05-08 14:53 | disposition home or self-care (01) | DRG 714 ==
LOC: SUPCPDRO 09:04 → H.ER 09:04 → H.ERHOLD 11:53 → H.MEDSURG1 15:51
PROVIDERS: ADMIT Family Medicine Geriatric Medicine; ATTEND Family Medicine Geriatric Medicine
DX: B20 Human immunodeficiency virus [HIV] disease (principal); B44.1 Other pulmonary aspergillosis; J45.20 Mild intermittent asthma, uncomplicated; Z86.11 Personal history of tuberculosis